=== PATIENT | male | born 1950 | race Caucasian/White ===

== ENCOUNTER 2021-11-18 13:02 | Emergency (ER) | payer MEDICARE, SELFPAY ==
[2021-11-18 13:27] VITALS: BP 126/70; PULSE 96; RESP 18; TEMP 36.7; O2SAT 96; BMI 23.7
--- NOTE | 2021-11-18 13:31 | XR_ITS ---
WS: [id number] XR chest 1V portable [id number] REASON FOR EXAM: dyspnea/cough FINDINGS: Moderate tortuosity and ectasia of the thoracic aorta. The heart is mildly enlarged. There is a right pleural effusion. There is a left pleural effusion which appears to be partially loculated. There are linear and reticular lung opacities in the right lower lung. Consolidation/atelectasis in t he right lower lung medially. 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 XR/XR chest 1V portable [id number] IMPRESSION: Abnormal chest as above. Chronicity of the findings is unknown as there are no chest films to compare with. Findings could represent congestive heart failure, less likely pneumonitis.
--- NOTE | 2021-11-18 14:09 | W.ED.FALL ---
HPI - Fall General: Chief Complaint: Fall Stated Complaint: BREAK SHOWN IN XRAY ON R HIP/SENT FROM [place] Time Seen by Provider: 11/18/21 13:25 History of Present Illness: HPI Narrative: 71-year-old male presents emergency room from outpatient setting. 4 days ago he stumbled while taking a step up into his house since then he has had a difficult time walking but he has been walking some has been using Tylenol for pain he finally went to the local clinic because it was not getting any better. Clinic was not able to do x-rays on site and sent him to [facility] for hip x-ray that showed an impacted subcapital hip fracture and he was referred to the ER. 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 He is not diabetic he has no history of coronary disease stroke or cancer. He is not on any anticoagulants or other prescription medications. Unfortunately in route to the hospital this afternoon he ate. MD complaint: fall Associated symptoms-after fall: Denies abdominal pain or chest pain Review of Systems Const: Denies: fever(s), chills, body aches, change in appetite, fatigue or malaise ENMT: Denies: throat pain, ear or mastoid pain, nasal discharge or nasal congestion Card: Denies: chest pain, edema, dyspnea on exertion or orthopnea Resp: Denies: dyspnea, productive cough or non-productive cough GI: Denies: abdominal pain, nausea, vomiting, hematemesis, coffee ground emesis, diarrhea, constipation, bloating, hematochezia or melena : Denies: flank pain, dysuria, urinary frequency or urinary urgency Skin/Breast: Denies: rash or pruritus Physical Exam Const: COMMON NORMALS: no acute distress GENERAL APPEARANCE: cooperative and comfortable ORIENTATION/CONSCIOUSNESS: Yes awake, Yes oriented to person, Yes oriented to place and Yes oriented to time HENMT: COMMON NORMALS: normocephalic, atraumatic, hearing grossly normal bilaterally, external ears normal, EAC's normal, TM's normal bilaterally, Normal nasal mucous membranes and turbinates present, moist oral mucous membranes and oropharynx normal HEAD & SCALP: normocephalic and atraumatic NOSE: Normal nasal mucous membranes and turbinates present EXTERNAL EAR: Yes external ears normal EXTERNAL AUDITORY CANAL: EAC's normal TYMPANIC MEMBRANE: TM's normal bilaterally Eye: COMMON NORMALS: Equal, round and reactive pupils present, EOMs intact bilaterally, conjunctivae normal and no scleral icterus CONJUNCTIVA: Yes conjunctivae normal PUPIL: Yes Equal, round and reactive pupils present Neck/C-Spine: COMMON NORMALS: full ROM, no lymphadenopathy, supple and no JVD Lymph: LYMPHATIC: no lymphadenopathy noted and no lymphedema noted Resp: COMMON NORMALS: normal respiratory effort, No retractions, No use of accessory muscles and clear to auscultation bilaterally AUSCULTATION: clear to auscultation bilaterally and diminished lung sounds bilateral in the lower lung gonsalez Cardio: COMMON NORMALS: no JVD, regular rate, regular rhythm and No murmurs present (Cardio) RATE: regular rate RHYTHM: regular rhythm GI: COMMON NORMALS: Soft to palpation and No hepatosplenomegaly present AUSCULTATION: Yes normoactive bowel sounds PALPATION: Yes Soft to palpation, No Tenderness to palpation present (GI), No Guarding due to palpation present (GI) and Yes No hepatosplenomegaly present Extremity: COMMON NORMALS: normal to inspection, capillary refill normal, no clubbing, cyanosis or edema, no calf tenderness and no pedal edema Neuro: SENSORIUM/ORIENTATION: Yes oriented to person, Yes oriented to place and Yes oriented to time Skin: COMMON NORMALS: no rashes or lesions noted GENERAL SKIN EXAM: no rashes or lesions noted Course Vital Signs: Vital signs: Vital Signs Temperature 98.0 F 11/18/21 13:27 Pulse Rate 101 H 11/18/21 18:30 Respiratory Rate 15 11/18/21 18:30 Blood Pressure 135/90 11/18/21 18:30 Pulse Oximetry 96 11/18/21 18:30 MDM - Fall MDM Narrative: Medical decision making narrative: Right subcapital impacted hip fracture discussed Dr. Conway and with Dr. Velazquez. Will admit. Dr. Velazquez to admit Roder to consult. Dr. Conway consulted. Patient told me he done this about 4 days ago he told Dr. Conway he had done at 14 to 15 days ago. After reviewing the films and examining the patient Dr. Conway feels the patient can be discharged home. Dr. Conway seen the patient himself in the emergency room advised discharge home with hydrocodone and he will manage the fracture as an outpatient. Nonweightbearing on the affected hip. He should see his primary care doctor for evaluation of the pleural effusions at some point in the future. Lab Data: Labs: Lab Results 11/18/21 11/18/21 15:19 15:19 WBC 9.4 10^3/uL 10^3/ uL (4.0-10.0) RBC 4.26 10^6/uL 10^6 /uL (4.1-5.3) Hgb 12.0 g/dL g/dL (11.7-16.6) Hct 36.6 % L % (42.0-52.0) MCV 85.9 fl fl (80-94) MCH 28.2 pg pg (28.0-34.0) MCHC 32.8 g/dL g/dL (30.0-36.0) RDW 14.3 % % (12.1-15.1) Plt Count 602 10^3/cmm H 10 ^3/cmm (130-400) MPV 8.9 fL fL (7.4-10.4) Neut % (Auto) 62.0 % % Lymph % (Auto) 21.9 % % [place] % (Auto) 13.6 % % Eos % (Auto) 2.0 % % Baso % (Auto) 0.3 % % Neut # (Auto) 5.80 10^3/uL 10^3 /uL (1.8-7.7) Lymph # (Auto) 2.1 10^3/uL 10^3/ uL (0.8-4.8) [place] # (Auto) 1.3 10^3/uL H 10^ 3/uL (0.2-0.9) Eos # (Auto) 0.2 10^3/uL 10^3/ uL (0.0-0.8) Baso # (Auto) 0.0 10^3/uL 10^3/ uL (0.0-0.1) Nucleated RBC % (a uto) 0 % % Nucleated RBCs # 0.0 /100WBC /100W BC Sodium 129 mmol/L L mmol /L (136-145) Potassium 4.2 mmol/L mmol/L (3.5-5.1) Chloride 90 mmol/L L mmol/ L (98-107) Carbon Dioxide 25 mmol/L mmol/L (22-29) Anion Gap 18.2 (5-19) BUN 4 mg/dL L mg/dL (8-23) Creatinine 0.4 mg/dL L mg/dL (0.7-1.2) GFR Calculation Not Reportable Glucose 69 mg/dL mg/dL (65-115) Calculated Osmolal ity 263 mOsm/kg L mOs m/kg (285-295) Calcium 8.6 mg/dL mg/dL (8.5-10.5) Total Bilirubin 0.3 mg/dL mg/dL (0.15-1.2) AST 15 U/L U/L (0-40) ALT 6 U/L U/L (0-41) Alkaline Phosphata se 105 IU/L IU/L (40-130) Creatine Kinase 30 U/L L U/L (39-308) Total Protein 8.4 g/dL g/dL (6.6-8.7) Albumin 3.6 g/dL g/dL (3.5-5.2) Globulin 4.8 g/dL H g/dL (1.3-4.6) Discharge Plan Discharge Patient Disposition: Home Clinical Impression: Subcapital fracture of right hip, Pleural effusion Condition: Stable Prescriptions: New hydrocodone-acetaminophen 5-325 mg tablet 1 tab PO Q6H PRN (Reason: pain) Qty: 20 RF: 0 No Action No Known Home Medications RF: 0 Discharge Orders: Discharge Order (Routine); Ordered 11/18/21 Ordered By: Cristino Rodriguez Discharge ED (Routine); Ordered 11/23/21 Ordered By: Cristino Rodriguez Referrals: Alban Luz [Primary Care Provider] - Patient Instructions: Opioid Safety Activity Restrictions/Additional Instructions: Follow-up with orthopedics in 3 weeks as per their instructions. Coding Level of Care Code ED Marine Mammal Trainer for Clemente Fwd Exam Comprehensive
[2021-11-18 15:52] LABS: Basophils % 0.3 %; Eosinophils # 0.2 10^3/uL (0.0-0.8); Hematocrit 36.6 % (42.0-52.0); Lymphocytes # 2.1 10^3/uL (0.8-4.8); Lymphocytes % 21.9 %; Mean Corpuscular HGB Conc 32.8 g/dL (30.0-36.0); Mean Corpuscular Hemoglobin 28.2 pg (28.0-34.0); Mean Corpuscular Volume 85.9 fl (80-94); Mean Platelet Volume 8.9 fL (7.4-10.4); Monocytes # 1.3 10^3/uL (0.2-0.9); Monocytes % 13.6 %; Nucleated Red Blood Cells % 0 %; Platelet Count 602 10^3/cmm (130-400); Red Blood Count 4.26 10^6/uL (4.1-5.3); Red Cell Distribution Width 14.3 % (12.1-15.1); White Blood Count 9.4 10^3/uL (4.0-10.0)
[2021-11-18 16:30] LABS: Alanine Aminotransferase 6 U/L (0-41); Albumin Level 3.6 g/dL (3.5-5.2); Alkaline Phosphatase 105 IU/L (40-130); Anion Gap 18.2 (5-19); Aspartate Amino Transferase 15 U/L (0-40); Blood Urea Nitrogen 4 mg/dL (8-23); Calcium 8.6 mg/dL (8.5-10.5); Carbon Dioxide 25 mmol/L (22-29); Chloride 90 mmol/L (98-107); Creatine Phosphokinase 30 U/L (39-308); Globulin 4.8 g/dL (1.3-4.6); Glucose 69 mg/dL (65-115); Osmolality Calculated 263 mOsm/kg (285-295); Potassium 4.2 mmol/L (3.5-5.1); Sodium 129 mmol/L (136-145); Total Bilirubin 0.3 mg/dL (0.15-1.2); Total Protein 8.4 g/dL (6.6-8.7)
--- NOTE | 2021-11-18 16:35 | P.CONIM_ITS ---
Providers/Reason For Consult Consulting Physician/Specialty*: Brian Conway MD orthopedic surgery Reason for Consult*: Right femoral neck fracture Attending Physician: Gigi Velazquez MD Primary Care Provider: Alban Luz History of Present Illness History of Present Illness Jose Armando Ulloa is a 71 year old male who describes falling 15 days ago at home with resulting pain in his hip. He states for the first few days he used crutches but since gave him up. He is concerned that he has had persistent hip pain and feelings of if something is out of place in his hip. He was seen by his primary care physician Anderson Ball and referred to [facility] where radiographs were obtained revealing impacted femoral neck fracture. He has been transferred here to [facility] emergency room for evaluation. The patient states he has pain only with significant weightbearing. He denies any pain with motion of the hip or at rest. He states with limited weightbearing his pain will completely disappear. Medications/Allergies Home Medications Medication Instructions Recorded Confirmed Last Taken Type No Known Home Medications 11/18/21 11/18/21 Unknown History Allergies Allergy/AdvReac Type Severity Reaction Status Date / Time venom-honey bee Allergy Unknown Unknown Verified 11/18/21 14:33 Vitals/I&O/Wt Last Vital Signs Temp 98.0 F 11/18/21 13:27 Pulse 96 11/18/21 13:27 Resp 18 11/18/21 13:27 BP 126/70 11/18/21 13:27 Pulse Ox 96 11/18/21 13:27 Weight last 48 hrs Weight 175 lb Physical Exam Narrative: EXAM NARRATIVE: Patient is a elderly male supine in bed. He is alert and oriented to person place and time and answers questions appropriately. There is no pain with motion of his right hip. I can flex rotate the hip internally and externally while in bed without discomfort. He will flex extend his toes and his ankle without any motor deficits His sensation is intact to light touch. Data Imaging^: Xray Ortho: My impression: 2 views of the right hand from [facility] reviewed. The patient has a impacted fracture of the right femoral neck with slight posterior angulation. A&P Assessment and plan (1) Subcapital fracture of right hip: The patient has fairly stable appearing impacted fracture of the right femoral neck. He has absolutely no pain with motion. I told him the greatest concern with fixing these fractures is of displacement occurring within the first few weeks. He has actually been bearing full weight with no displacement. This appears to be a very stable fracture. His clinical exam reveals very little pain with motion again supporting the stability assessment of this fracture. I told him we could consider pinning. This would not provide better stability and perhaps allow him to bear more weight. I think at this point would not be unreasonable for him to continue with the crutches and continue with limited weightbearing until his pain improves. I discussed risk with either treatment including malunion, nonunion, and avascular necrosis of the femur. At this point I am not certain that pinning would offer any significant benefits and after discussion with the patient and his family they agreed to could continue with protective weightbearing. I would like to see him back in my clinic in 3 weeks with x-rays to be sure things are healing. Status: Acute Coding Level of Care Code Acute Career Education Teacher for Clemente Messer Diagnoses Subcapital fracture of right hip S72.011A
[2021-11-18 18:30] VITALS: BP 135/90; PULSE 101; RESP 15; O2SAT 96
--- NOTE | 2022-01-18 09:51 | DCPLANNER ---
Addendum entered by Edel Castellon 01/26/22 08:01: this was charted on wrong person. Original Note: manager of care had message to schedule a follow up appointment for patient with ortho. manager of care called the ortho clinic, spoke with Valeria, gave clinic patients information. manager of care was told that patients information would be printed and reviewed. Clinic will call patient with appointment information.
== END 2021-11-18 18:32 | disposition home or self-care (01) ==
LOC: ER 14:57 → MEDSURG 16:37
PROVIDERS: Emergency Provider Family Medicine; PCP Family Medicine; Visit Provider Internal Medicine
DX: S72.011A Unspecified intracapsular fracture of right femur, initial encounter for closed fracture (principal); J90 Pleural effusion, not elsewhere classified; W01.0XXA Fall on same level from slipping, tripping and stumbling without subsequent striking against object, initial encounter
CPT/HCPCS: 71045; 80053; 82550; 85025; 99282